=== PATIENT | female | born 1960 | race Caucasian/White ===

== ENCOUNTER → 2016-06-05 | Outpatient (CLI) | payer MEDICARE, OTHER ==
[2016-06-05 10:46] LABS: ABSOLUTE EOSINOPHILS # (AUTO) 0.1 10^3/uL (0.0-0.6); ABSOLUTE LYMPHOCYTES (AUTO) 1.1 10^3/uL (0.5-4.7); ABSOLUTE MONOCYTES (AUTO) 0.4 10^3/uL (0.1-1.4); ABSOLUTE NEUT (AUTO) 5.6 10^3/uL (1.7-8.2); BASOPHILS % (AUTO) 0.5 % (0-2); EOSINOPHILS % (AUTO) 1.7 % (0-6); HEMATOCRIT 39.5 % (36.0-47.0); HEMOGLOBIN 13.4 g/dL (12.0-15.5); HGB HCT DIFFERENCE 0.7; LYMPHOCYTES % (AUTO) 14.7 % (13-45); MEAN CORPUSCULAR HEMOGLOBIN 29.5 pg (27.0-33.4); MEAN CORPUSCULAR HGB CONC 33.8 g/dL (32.0-36.0); MEAN CORPUSCULAR VOLUME 87 fl (80-97); MONOCYTES % (AUTO) 5.3 % (3-13); RED BLOOD COUNT 4.53 10^6/uL (3.72-5.28); RED CELL DISTRIBUTION WIDTH 13.1 % (11.5-14.0); SEGMENTED NEUTROPHILS % (AUTO) 77.8 % (42-78); WHITE BLOOD COUNT 7.2 10^3/uL (4.0-10.5)
[2016-06-05 11:05] LABS: ALBUMIN 4.3 g/dL (3.5-5.0); BILIRUBIN,TOTAL 0.6 mg/dL (0.2-1.3); CHOLESTEROL 207.18 mg/dL (0-200)
[2016-06-05 11:12] LABS: ANION GAP 13 (5-19); BLOOD UREA NITROGEN 10 mg/dL (7-20); CALCIUM 10.1 mg/dL (8.4-10.2); CARBON DIOXIDE 28 mmol/L (22-30); CHLORIDE 106 mmol/L (98-107); CREATININE RESULT 0.82 mg/dL (0.52-1.25); GLUCOSE 99 mg/dL (75-110); MAGNESIUM 1.6 mg/dL (1.6-2.3); SODIUM 147.3 mmol/L (137-145)
== END ==
LOC: OD 09:19
PROVIDERS: ATTEND Internal Medicine Nephrology
DX: Z94.0 Kidney transplant status (principal); Z79.899 Other long term (current) drug therapy; E55.9 Vitamin D deficiency, unspecified; Z11.4 Encounter for screening for human immunodeficiency virus [HIV]; E11.29 Type 2 diabetes mellitus with other diabetic kidney complication; N39.0 Urinary tract infection, site not specified
CPT/HCPCS: 36415; 80048; 80197; 82040; 82247; 82465; 82977; 83718; 83721; 83735; 84075; 84100; 84450; 84460; 84478; 85025

== ENCOUNTER → 2016-08-05 | Outpatient (CLI) | payer MEDICARE, OTHER ==
[2016-08-05 10:09] LABS: ABSOLUTE EOSINOPHILS # (AUTO) 0.2 10^3/uL (0.0-0.6); ABSOLUTE LYMPHOCYTES (AUTO) 1.2 10^3/uL (0.5-4.7); ABSOLUTE MONOCYTES (AUTO) 0.2 10^3/uL (0.1-1.4); ABSOLUTE NEUT (AUTO) 2.6 10^3/uL (1.7-8.2); BASOPHILS % (AUTO) 0.4 % (0-2); EOSINOPHILS % (AUTO) 4.8 % (0-6); HEMATOCRIT 32.3 % (36.0-47.0); HEMOGLOBIN 10.6 g/dL (12.0-15.5); HGB HCT DIFFERENCE -0.5; LYMPHOCYTES % (AUTO) 27.9 % (13-45); MEAN CORPUSCULAR HEMOGLOBIN 27.6 pg (27.0-33.4); MEAN CORPUSCULAR HGB CONC 32.9 g/dL (32.0-36.0); MEAN CORPUSCULAR VOLUME 84 fl (80-97); MONOCYTES % (AUTO) 5.8 % (3-13); RED BLOOD COUNT 3.85 10^6/uL (3.72-5.28); RED CELL DISTRIBUTION WIDTH 14.6 % (11.5-14.0); SEGMENTED NEUTROPHILS % (AUTO) 61.1 % (42-78); WHITE BLOOD COUNT 4.2 10^3/uL (4.0-10.5)
[2016-08-05 10:26] LABS: ALANINE AMINOTRANSFERASE 24 U/L (9-52); ALBUMIN 3.8 g/dL (3.5-5.0); ALKALINE PHOSPHATASE 57 U/L (38-126); ANION GAP 11 (5-19); ASPARTATE AMINO TRANSFERASE 22 U/L (14-36); BILIRUBIN,TOTAL 0.6 mg/dL (0.2-1.3); BLOOD UREA NITROGEN 12 mg/dL (7-20); CALCIUM 9.8 mg/dL (8.4-10.2); CARBON DIOXIDE 27 mmol/L (22-30); CHLORIDE 103 mmol/L (98-107); CHOLESTEROL 169.47 mg/dL (0-200); CREATININE RESULT 1.18 mg/dL (0.52-1.25); Direct HDL 29 mg/dL (>40); GLUCOSE 96 mg/dL (75-110); MAGNESIUM 1.6 mg/dL (1.6-2.3); PHOSPHORUS 4.2 mg/dL (2.5-4.5); POTASSIUM 4.6 mmol/L (3.6-5.0); SODIUM 140.6 mmol/L (137-145); TRIGLYCERIDES 287 mg/dL (<150)
[2016-08-05 10:38] LABS: DIRECT LDL 81 mg/dL (<100)
== END ==
LOC: OD 08:57
PROVIDERS: ATTEND Internal Medicine Nephrology
DX: D68.9 Coagulation defect, unspecified (principal); Z94.0 Kidney transplant status; Z79.899 Other long term (current) drug therapy; E55.9 Vitamin D deficiency, unspecified; Z11.4 Encounter for screening for human immunodeficiency virus [HIV]; E11.29 Type 2 diabetes mellitus with other diabetic kidney complication; Z78.9 Other specified health status; N39.0 Urinary tract infection, site not specified; D63.1 Anemia in chronic kidney disease; E83.30 Disorder of phosphorus metabolism, unspecified; Z09 Encounter for follow-up examination after completed treatment for conditions other than malignant neoplasm; T86.10 Unspecified complication of kidney transplant; B25.9 Cytomegaloviral disease, unspecified; Z94.83 Pancreas transplant status
CPT/HCPCS: 36415; 80048; 80197; 82040; 82247; 82465; 82977; 83718; 83721; 83735; 84075; 84100; 84450; 84460; 84478; 85025

== ENCOUNTER → 2016-08-14 | Outpatient (CLI) | payer MEDICARE, OTHER ==
[2016-08-14 09:34] LABS: ABSOLUTE EOSINOPHILS # (AUTO) 0.2 10^3/uL (0.0-0.6); ABSOLUTE LYMPHOCYTES (AUTO) 1.3 10^3/uL (0.5-4.7); ABSOLUTE MONOCYTES (AUTO) 0.3 10^3/uL (0.1-1.4); BASOPHILS % (AUTO) 0.4 % (0-2); EOSINOPHILS % (AUTO) 4.8 % (0-6); HEMATOCRIT 35.9 % (36.0-47.0); HEMOGLOBIN 11.6 g/dL (12.0-15.5); HGB HCT DIFFERENCE -1.1; LYMPHOCYTES % (AUTO) 26.6 % (13-45); MEAN CORPUSCULAR HEMOGLOBIN 27.6 pg (27.0-33.4); MEAN CORPUSCULAR HGB CONC 32.3 g/dL (32.0-36.0); MEAN CORPUSCULAR VOLUME 86 fl (80-97); MONOCYTES % (AUTO) 6.2 % (3-13); RED BLOOD COUNT 4.19 10^6/uL (3.72-5.28); RED CELL DISTRIBUTION WIDTH 14.7 % (11.5-14.0); WHITE BLOOD COUNT 4.8 10^3/uL (4.0-10.5)
[2016-08-14 09:59] LABS: ANION GAP 12 (5-19); BLOOD UREA NITROGEN 15 mg/dL (7-20); CARBON DIOXIDE 28 mmol/L (22-30); CHLORIDE 102 mmol/L (98-107); CREATININE RESULT 1.13 mg/dL (0.52-1.25); GLUCOSE 94 mg/dL (75-110); MAGNESIUM 1.8 mg/dL (1.6-2.3); PHOSPHORUS 4.6 mg/dL (2.5-4.5); POTASSIUM 4.3 mmol/L (3.6-5.0); SODIUM 142.2 mmol/L (137-145)
== END ==
LOC: OD 07:34
PROVIDERS: ATTEND Internal Medicine Nephrology
DX: Z94.0 Kidney transplant status (principal); D89.9 Disorder involving the immune mechanism, unspecified; Z79.899 Other long term (current) drug therapy; E55.9 Vitamin D deficiency, unspecified; Z11.4 Encounter for screening for human immunodeficiency virus [HIV]; E11.29 Type 2 diabetes mellitus with other diabetic kidney complication; Z78.9 Other specified health status; N39.0 Urinary tract infection, site not specified; D63.1 Anemia in chronic kidney disease; E83.30 Disorder of phosphorus metabolism, unspecified; Z09 Encounter for follow-up examination after completed treatment for conditions other than malignant neoplasm; T86.10 Unspecified complication of kidney transplant; B26.9 Mumps without complication; Z94.83 Pancreas transplant status
CPT/HCPCS: 36415; 80048; 80197; 83735; 84100; 85025

== ENCOUNTER → 2016-08-21 | Outpatient (CLI) | payer MEDICARE, OTHER ==
[2016-08-21 08:59] LABS: ABSOLUTE EOSINOPHILS # (AUTO) 0.2 10^3/uL (0.0-0.6); ABSOLUTE LYMPHOCYTES (AUTO) 1.1 10^3/uL (0.5-4.7); ABSOLUTE MONOCYTES (AUTO) 0.5 10^3/uL (0.1-1.4); BASOPHILS % (AUTO) 0.3 % (0-2); EOSINOPHILS % (AUTO) 1.7 % (0-6); HEMATOCRIT 38.1 % (36.0-47.0); HEMOGLOBIN 12.2 g/dL (12.0-15.5); HGB HCT DIFFERENCE -1.5; LYMPHOCYTES % (AUTO) 12.7 % (13-45); MEAN CORPUSCULAR HEMOGLOBIN 27.2 pg (27.0-33.4); MEAN CORPUSCULAR HGB CONC 32.1 g/dL (32.0-36.0); MEAN CORPUSCULAR VOLUME 85 fl (80-97); MONOCYTES % (AUTO) 5.9 % (3-13); RED BLOOD COUNT 4.49 10^6/uL (3.72-5.28); RED CELL DISTRIBUTION WIDTH 15.1 % (11.5-14.0); SEGMENTED NEUTROPHILS % (AUTO) 79.4 % (42-78); WHITE BLOOD COUNT 8.8 10^3/uL (4.0-10.5)
[2016-08-21 09:29] LABS: ANION GAP 15 (5-19); BLOOD UREA NITROGEN 14 mg/dL (7-20); CALCIUM 10.4 mg/dL (8.4-10.2); CARBON DIOXIDE 24 mmol/L (22-30); CHLORIDE 105 mmol/L (98-107); CREATININE RESULT 1.11 mg/dL (0.52-1.25); GLUCOSE 96 mg/dL (75-110); MAGNESIUM 1.4 mg/dL (1.6-2.3); PHOSPHORUS 4.5 mg/dL (2.5-4.5); POTASSIUM 4.6 mmol/L (3.6-5.0); SODIUM 143.9 mmol/L (137-145)
[2016-08-25 08:03] LABS: DEAMIDATED GLIADIN IGA AB 1 units (0-19); DEAMIDATED GLIADIN IGG AB 2 units (0-19); IMMUNOGLOBULIN A 2 65 mg/dL (87-352); T-TRANSGLUTAMINASE (TTG) IGG <2 U/mL (0-5)
== END ==
LOC: OD 08:08
PROVIDERS: ATTEND Internal Medicine Nephrology
DX: D89.9 Disorder involving the immune mechanism, unspecified (principal); Z94.0 Kidney transplant status; Z79.899 Other long term (current) drug therapy; E55.9 Vitamin D deficiency, unspecified; Z11.4 Encounter for screening for human immunodeficiency virus [HIV]; E11.29 Type 2 diabetes mellitus with other diabetic kidney complication; Z78.9 Other specified health status; N39.0 Urinary tract infection, site not specified; T86.10 Unspecified complication of kidney transplant; B25.9 Cytomegaloviral disease, unspecified; Z94.83 Pancreas transplant status
CPT/HCPCS: 36415; 80048; 80197; 82533; 83520; 83735; 84100; 84443; 85025

== ENCOUNTER 2016-08-26 16:06 | Inpatient (IN) | payer MEDICARE, OTHER ==
[~2016-08-26 16:06] MED LIST: LIDOCAINE 2% INJ-PF (20 MG/ML) 10 ML AMPUL ONE
[2016-08-26] MEDS ORDERED: DEXTROSE 5%-1/2 NORMAL SALINE 1,000 ML IV PRN (17:00)
[2016-08-26 17:16] LABS: APPEARANCE,URINE SLIGHTLY-CLOUDY; BILIRUBIN,URINE NEGATIVE (NEGATIVE); GLUCOSE, URINE NEGATIVE (NEGATIVE); KETONES,URINE NEGATIVE (NEGATIVE); LEUKOCYTE ESTERASE,URINE TRACE (NEGATIVE); NITRITE,URINE NEGATIVE (NEGATIVE); PROTEIN,URINE NEGATIVE (NEGATIVE); URINE SPECIFIC GRAVITY 1.015; UROBILINOGEN,URINE NEGATIVE mg/dL (<2.0)
[2016-08-26 17:34] LABS: ABSOLUTE BASOPHILS # (AUTO) 0.1 10^3/uL (0.0-0.2); ABSOLUTE EOSINOPHILS # (AUTO) 0.2 10^3/uL (0.0-0.6); ABSOLUTE LYMPHOCYTES (AUTO) 1.3 10^3/uL (0.5-4.7); ABSOLUTE MONOCYTES (AUTO) 0.5 10^3/uL (0.1-1.4); ABSOLUTE NEUT (AUTO) 7.6 10^3/uL (1.7-8.2); BASOPHILS % (AUTO) 0.6 % (0-2); HEMATOCRIT 36.1 % (36.0-47.0); HEMOGLOBIN 11.6 g/dL (12.0-15.5); HGB HCT DIFFERENCE -1.3; LYMPHOCYTES % (AUTO) 13.2 % (13-45); MEAN CORPUSCULAR HEMOGLOBIN 27.3 pg (27.0-33.4); MEAN CORPUSCULAR VOLUME 85 fl (80-97); MONOCYTES % (AUTO) 5.1 % (3-13); RED BLOOD COUNT 4.22 10^6/uL (3.72-5.28); SEGMENTED NEUTROPHILS % (AUTO) 79.1 % (42-78); WHITE BLOOD COUNT 9.6 10^3/uL (4.0-10.5)
[2016-08-26] MEDS ORDERED: FENTANYL CITRATE INJ/PF 100 MCG/2 ML AMPUL ONE ×2 (17:49→20:04)
[2016-08-26] MEDS ORDERED: MIDAZOLAM 2 MG/2 ML INJ ONE ×2 (17:49→18:43)
[2016-08-26] MEDS ORDERED: PROPOFOL INJ 200 MG/20 ML VIAL IV ONE ×2 (17:50→18:43)
[2016-08-26] MEDS ORDERED: LIDOCAINE 0.5% INJ-PF (5 MG/ML) 50 ML SDV ONE (17:51)
[2016-08-26 18:02] LABS: ALANINE AMINOTRANSFERASE 18 U/L (9-52); ALBUMIN 4.3 g/dL (3.5-5.0); ALKALINE PHOSPHATASE 63 U/L (38-126); ANION GAP 14 (5-19); ASPARTATE AMINO TRANSFERASE 19 U/L (14-36); BILIRUBIN,DIRECT 0.4 mg/dL (0.0-0.4); BILIRUBIN,TOTAL 0.4 mg/dL (0.2-1.3); BLOOD UREA NITROGEN 17 mg/dL (7-20); CALCIUM 9.8 mg/dL (8.4-10.2); CARBON DIOXIDE 24 mmol/L (22-30); CHLORIDE 102 mmol/L (98-107); CREATININE RESULT 1.13 mg/dL (0.52-1.25); GLUCOSE 85 mg/dL (75-110); POTASSIUM 4.2 mmol/L (3.6-5.0); SODIUM 140.4 mmol/L (137-145); TOTAL PROTEIN 7.6 g/dL (6.3-8.2)
[2016-08-26] MEDS ORDERED: LIDOCAINE 1% INJ-PF (10 MG/ML) 30 ML SDV ONE (18:29)
[2016-08-26] MEDS ORDERED: VANCOMYCIN HCL INJ 500 MG VIAL ONE (18:30)
--- NOTE | 2016-08-26 18:34 | HISTORY AND PHYSICAL E ---
History and Physical NAME: QAMAR TAPIA : 1960 AGE: 56Y ADMITTED: 08/26/2016 ROOM: 209 CHIEF COMPLAINT: Pain along the right breast, the left pubic area, and the right axilla. HISTORY OF PRESENT ILLNESS: This is a 56-year-old female who has a history of kidney transplant in 2011 and has been on anti-rejection medications. About 2 weeks ago, she noted a boil in the right breast, as well as another one in the left pubic area. This has been gradually worsening and also noted the off and on fever in the past 1-1/2 weeks. Also has been complaining of pains along the right axilla. She was seen by her primary physician yesterday and put on p.o. antibiotics and [facility] and subsequently sent to the hospital as a direct admission for possible incision and drainage of multiple abscesses. PAST MEDICAL HISTORY: 1. History of degenerative joint disease, as well as spinal stenosis of the cervical spine. 2. Kidney transplant in 2011. 3. Four abdominal hernias that were repaired in [place], but there is some complication with inadvertant injury to the bowel, but this has been fixed, according to the patient. 4. Patient denies hypertension or diabetes. ALLERGIES: SHE HAS MULTIPLE ALLERGIES TO: 1. OXYCONTIN. 2. PERCOCET. 3. CRESTOR. 4. VICODIN. 5. SULFA. 6. DARVOCET. FAMILY HISTORY: Noncontributory. SOCIAL HISTORY: Denies smoking, nor drinking, nor drug use. PHYSICAL EXAMINATION: GENERAL: Well-developed, well-nourished, 56-year-old female, alert and oriented. Complaining of pain along the right breast and the left pubic area and the right axilla. VITAL SIGNS: Blood pressure 124/100, pulse rate of 86, temperature of 99.9 degrees Fahrenheit, and 99% pulse oximetry on room air. NECK: Supple. No thyromegaly. LUNGS: Clear. HEART: Regular sinus rhythm. SKIN: The axilla has at least 3 areas of small abscesses and the biggest at the mid part, about 1.5 cm in diameter. The right breast, however, has a large abscess with fluctuation. ABDOMEN: Soft with obvious left pubic abscess, about 3 cm in diameter. EXTREMITIES: No edema. IMPRESSION: 1. Multiple abscesses of the right breast, the right axilla, and the left pubic area. 2. History of kidney transplant. 3. Mild renal failure, which she claims is due to IV contrast in her CAT scans at about 2 months ago. 4. She is also waiting to be further evaluated at the [facility] for her progress of the kidney transplant. PLAN: Patient for I and D of these abscesses and start on IV antibiotics. DICTATING PHYSICIAN: ZAIN OCONNOR M.D. [id number] PHY#: [id number] ID: [id number] JOB#: [id number] ACCT: [id number] cc: >
[2016-08-26] MEDS ORDERED: KETAMINE HCL INJ 500 MG/10 ML VIAL ONE (18:42)
[2016-08-26] MEDS ORDERED: VANCOMYCIN HCL 1,000 MG in DEXTROSE 5%-WATER 250 ML IV ONE (19:00)
[2016-08-26] MEDS ORDERED: MORPHINE SULFATE 10 MG/ML INJ IV PRN (19:18)
[2016-08-26] MEDS ORDERED: FENTANYL CITRATE INJ/PF 100 MCG/2 ML AMPUL IV PRN ×3 (19:18)
[2016-08-26] MEDS ORDERED: DIPHENHYDRAMINE HCL 50 MG/ML VIAL IV PRN (19:18)
[2016-08-26] MEDS ORDERED: ONDANSETRON HCL INJ/PF 4 MG/2 ML SDV IV PRN ×2 (19:18→20:37)
--- NOTE | 2016-08-26 20:09 | OPERATIVE REPORT E ---
Operative Report NAME: QAMAR TAPIA : 1960 AGE: 56Y DATE OF SURGERY: 08/26/2016 ROOM: 209 PREOPERATIVE DIAGNOSIS: Multiple abscesses of the right breast, the right axilla and the left pubic area. POSTOPERATIVE DIAGNOSIS: Multiple abscesses of the right breast, the right axilla and the left pubic area. OPERATION: Incision and drainage of abscess of the left pubic area, the right breast, 3 right axillary abscesses. SURGEON: ZAIN OCONNOR M.D. ANESTHESIA: Local MAC. INDICATION: This is a 56-year-old female who has been on antirejection therapy for kidney transplant noted to have abscesses in the right breast, the right axilla and the left pubic area for the past 2 weeks. [facility] and referred for admission to the hospital for incision and drainage of multiple abscesses. DESCRIPTION OF PROCEDURE: After adequate IV sedation, the patient was placed in a supine position with the right arm extended and the right axilla, the right breast and the left pubic areas were then prepped and draped in the usual sterile fashion. Appropriate timeout was performed. Next local anesthesia infiltrated in the left pubic area and incision made. A gush of pus was noted and cultures were obtained. The pocket was then probed with hemostat and extended laterally and medially to a distance of about 5 cm. The area was also finger dissected and there is one area where it goes further deep down close to the fascia. The area subsequently pulse lavaged and subsequently packed with 1/2-inch Iodoform gauze. Next, the right breast was then injected with 1% Xylocaine and an incision through an old reduction mammoplasty scar was made right on top of the abscess. This area has a bigger sized abscess and a lot of purulent material extruded out. Cultures were also obtained. The incision was extended laterally and medially right on the scar roughly measuring about 8 cm long. Further finger dissection was performed and there appears to be a couple of cavitations that were also broken up. The area was then pulse lavaged with a liter of saline. The area was subsequently packed with 1/2-inch Iodoform gauze. Attention was then turned to the area of the 3 small abscesses in the right axilla. Local anesthesia infiltrated on top of the abscesses and incisions were made with top part joined together, making about a 1 cm to 2 cm incision and some purulent material also excised and removed. Next, a smaller abscess on the medial axillary area was anesthetized and incision made. Also some purulent material was extruded and also bluntly dissected with a hemostat. Iodoform gauze 1/4 inch were placed on these 3 incisions and drainage sites. Sterile dressings were placed over all the incisions. Needle, instruments and sponge counts were all correct and estimated blood loss about 30 mL. The patient tolerated the procedure well and brought to recovery room in satisfactory condition. DICTATING PHYSICIAN: ZAIN OCONNOR M.D. [id number] PHY#: [id number] ID: [id number] JOB#: [id number] ACCT: [id number] cc:ZAIN OCONNOR M.D. >
[2016-08-26] MEDS ORDERED: FENTANYL CITRATE INJ/PF 100 MCG/2 ML AMPUL INJ ONE (20:25)
[2016-08-26] MEDS ORDERED: IBUPROFEN INJ 800 MG/8 ML VIAL IV ONE (20:31)
[2016-08-26] MEDS ORDERED: HYDROMORPHONE HCL INJ/PF 2 MG/ML AMPULE IV PRN (20:31)
[2016-08-26] MEDS ORDERED: NORMAL SALINE 1000 ML 1,000 ML IV PRN (20:37)
[2016-08-26] MEDS ORDERED: ACETAMINOPHEN 325 MG TABLET PO PRN (21:30)
[2016-08-27] MEDS: HYDROMORPHONE HCL INJ/PF 2 MG/ML AMPULE IV PRN ×2 (02:12→05:47)
[2016-08-27] MEDS ORDERED: VANCOMYCIN HCL 750 MG in DEXTROSE 5%-WATER 250 ML IV SCH (06:00)
[2016-08-27] MEDS ORDERED: VANCOMYCIN HCL 1,000 MG in DEXTROSE 5%-WATER 250 ML IV SCH (06:00)
[2016-08-27] MEDS ORDERED: HYDROMORPHONE HCL INJ/PF 2 MG/ML AMPULE IV PRN (08:44)
--- NOTE | 2016-08-27 12:04 | DISCHARGE SUMMARY E ---
Discharge Summary NAME: QAMAR TAPIA : 1960 AGE: 56Y ADMITTED: 08/26/2016 DISCHARGED: 08/27/2016 FINAL DIAGNOSIS: Abscesses of the right breast, the left pubis, and the right axilla. PROCEDURE DONE: Incision and drainage of abscesses of the right breast, the left pubis, and the right axilla. SUMMARY: This is a 56-year-old female who had a history of kidney transplant, on anti-rejection medications, noted the gradually enlarging inflammation of the right breast and left pubis and the right axilla for the past 2 weeks. She was sent from the surgical clinic for incision and drainage of the abscesses. She underwent incision and drainage of above abscesses and they were pulsed lavaged and packed with Iodoform gauze. Patient has chronic back pain on pain management and needed continued pain medications, not from the incision but primarily because of her back. She still has oxycodone medications at home and she will continue taking that and follow up with her pain management doctor, Dr. Dubois. She will also be seen in the surgical clinic tomorrow for removal of the packing. Prescription for Augmentin 500 mg p.o. t.i.d. for 1 week was given to the patient. Patient is feeling better. Afebrile. Tolerating her diet well. DICTATING PHYSICIAN: ZAIN OCONNOR M.D. [id number] PHY#: [id number] ID: [id number] JOB#: [id number] ACCT: [id number] cc:ZAIN OCONNOR M.D. >
[2016-08-27 12:41] VITALS: BP 116/70
== END 2016-08-27 12:40 | disposition home or self-care (01) | DRG 584 ==
LOC: 2N 16:06
PROVIDERS: ATTEND Surgery
PROC: 0X940ZX Drainage of Right Axilla, Open Approach, Diagnostic (ICD-10-PCS; 2016-08-26)
PROC: 0J9C0ZX Drainage of Pelvic Region Subcutaneous Tissue and Fascia, Open Approach, Diagnostic (ICD-10-PCS; 2016-08-26)
PROC: 0H9T0ZX Drainage of Right Breast, Open Approach, Diagnostic (ICD-10-PCS; principal; 2016-08-26 18:30)
DX: N61.1 Abscess of the breast and nipple (principal); L02.413 Cutaneous abscess of right upper limb; L02.219 Cutaneous abscess of trunk, unspecified; L02.411 Cutaneous abscess of right axilla; Z94.0 Kidney transplant status; M54.9 Dorsalgia, unspecified; G89.29 Other chronic pain; F17.210 Nicotine dependence, cigarettes, uncomplicated; F41.9 Anxiety disorder, unspecified; M48.02 Spinal stenosis, cervical region; N19 Unspecified kidney failure; Z88.6 Allergy status to analgesic agent; Z88.2 Allergy status to sulfonamides; Z88.1 Allergy status to other antibiotic agents; Z88.5 Allergy status to narcotic agent; Z79.899 Other long term (current) drug therapy
CPT/HCPCS: 36415; 400; 80048; 80076; 81001; 85025; 87070; 87075; 87077; 87186; 87205; A6266; J1170; J1741; J2250; J2704; J3010; J3370; J3490; J7030; J7060

== ENCOUNTER → 2017-05-31 | Outpatient (CLI) | payer MEDICARE, OTHER ==
[2017-05-31 10:24] LABS: ABSOLUTE EOSINOPHILS # (AUTO) 0.1 10^3/uL (0.0-0.6); ABSOLUTE LYMPHOCYTES (AUTO) 1.5 10^3/uL (0.5-4.7); ABSOLUTE MONOCYTES (AUTO) 0.3 10^3/uL (0.1-1.4); ABSOLUTE NEUT (AUTO) 4.6 10^3/uL (1.7-8.2); BASOPHILS % (AUTO) 0.3 % (0-2); EOSINOPHILS % (AUTO) 1.9 % (0-6); HEMATOCRIT 38.3 % (36.0-47.0); HEMOGLOBIN 12.8 g/dL (12.0-15.5); LYMPHOCYTES % (AUTO) 23.4 % (13-45); MEAN CORPUSCULAR HEMOGLOBIN 29.5 pg (27.0-33.4); MEAN CORPUSCULAR HGB CONC 33.5 g/dL (32.0-36.0); MEAN CORPUSCULAR VOLUME 88 fl (80-97); MONOCYTES % (AUTO) 4.8 % (3-13); PLATELET COUNT 168 10^3/uL (150-450); RED BLOOD COUNT 4.34 10^6/uL (3.72-5.28); RED CELL DISTRIBUTION WIDTH 13.3 % (11.5-14.0); SEGMENTED NEUTROPHILS % (AUTO) 69.6 % (42-78); TOTAL CELLS COUNTED % (AUTO) 100 %; WHITE BLOOD COUNT 6.6 10^3/uL (4.0-10.5)
[2017-05-31 10:44] LABS: ANION GAP 12 (5-19); BLOOD UREA NITROGEN 12 mg/dL (7-20); CALCIUM 10.2 mg/dL (8.4-10.2); CARBON DIOXIDE 27 mmol/L (22-30); CHLORIDE 105 mmol/L (98-107); GLUCOSE 79 mg/dL (75-110); PHOSPHORUS 3.9 mg/dL (2.5-4.5); POTASSIUM 4.3 mmol/L (3.6-5.0); SODIUM 144.2 mmol/L (137-145)
== END ==
LOC: OD 09:38
PROVIDERS: ATTEND Internal Medicine Nephrology
DX: D89.9 Disorder involving the immune mechanism, unspecified (principal); Z94.0 Kidney transplant status; Z79.899 Other long term (current) drug therapy; E55.9 Vitamin D deficiency, unspecified; Z11.4 Encounter for screening for human immunodeficiency virus [HIV]; E11.29 Type 2 diabetes mellitus with other diabetic kidney complication; Z78.9 Other specified health status; N39.0 Urinary tract infection, site not specified; D63.1 Anemia in chronic kidney disease; E83.30 Disorder of phosphorus metabolism, unspecified; B25.9 Cytomegaloviral disease, unspecified; Z09 Encounter for follow-up examination after completed treatment for conditions other than malignant neoplasm; Z94.83 Pancreas transplant status
CPT/HCPCS: 36415; 80048; 80197; 83735; 84100; 85025

== ENCOUNTER → 2017-07-15 | Outpatient (CLI) | payer MEDICARE, OTHER ==
[2017-07-15 09:55] LABS: ABSOLUTE EOSINOPHILS # (AUTO) 0.1 10^3/uL (0.0-0.6); ABSOLUTE LYMPHOCYTES (AUTO) 1.5 10^3/uL (0.5-4.7); ABSOLUTE MONOCYTES (AUTO) 0.3 10^3/uL (0.1-1.4); ABSOLUTE NEUT (AUTO) 3.4 10^3/uL (1.7-8.2); BASOPHILS % (AUTO) 0.2 % (0-2); EOSINOPHILS % (AUTO) 2.5 % (0-6); HEMATOCRIT 36.4 % (36.0-47.0); HEMOGLOBIN 12.2 g/dL (12.0-15.5); LYMPHOCYTES % (AUTO) 28.4 % (13-45); MEAN CORPUSCULAR HEMOGLOBIN 29.7 pg (27.0-33.4); MEAN CORPUSCULAR HGB CONC 33.5 g/dL (32.0-36.0); MEAN CORPUSCULAR VOLUME 89 fl (80-97); MONOCYTES % (AUTO) 6.3 % (3-13); PLATELET COUNT 170 10^3/uL (150-450); RED BLOOD COUNT 4.12 10^6/uL (3.72-5.28); RED CELL DISTRIBUTION WIDTH 13.4 % (11.5-14.0); SEGMENTED NEUTROPHILS % (AUTO) 62.6 % (42-78); TOTAL CELLS COUNTED % (AUTO) 100 %; WHITE BLOOD COUNT 5.4 10^3/uL (4.0-10.5)
[2017-07-15 10:14] LABS: ANION GAP 13 (5-19); BLOOD UREA NITROGEN 11 mg/dL (7-20); CALCIUM 10.2 mg/dL (8.4-10.2); CARBON DIOXIDE 32 mmol/L (22-30); CHLORIDE 103 mmol/L (98-107); GLUCOSE 64 mg/dL (75-110); PHOSPHORUS 4.2 mg/dL (2.5-4.5); POTASSIUM 3.6 mmol/L (3.6-5.0); SODIUM 147.6 mmol/L (137-145)
== END ==
LOC: OD 09:03
PROVIDERS: ATTEND Internal Medicine Nephrology
DX: D89.9 Disorder involving the immune mechanism, unspecified (principal); Z94.0 Kidney transplant status; Z79.899 Other long term (current) drug therapy; Z11.4 Encounter for screening for human immunodeficiency virus [HIV]; E11.29 Type 2 diabetes mellitus with other diabetic kidney complication; N39.0 Urinary tract infection, site not specified; E83.30 Disorder of phosphorus metabolism, unspecified; B25.9 Cytomegaloviral disease, unspecified; D63.1 Anemia in chronic kidney disease; Z94.83 Pancreas transplant status; Z09 Encounter for follow-up examination after completed treatment for conditions other than malignant neoplasm
CPT/HCPCS: 36415; 80048; 80197; 83735; 84100; 85025

== ENCOUNTER → 2017-11-02 | Outpatient (CLI) | payer MEDICARE, OTHER ==
[2017-11-02 09:44] LABS: ABSOLUTE EOSINOPHILS # (AUTO) 0.1 10^3/uL (0.0-0.6); ABSOLUTE LYMPHOCYTES (AUTO) 1.4 10^3/uL (0.5-4.7); ABSOLUTE MONOCYTES (AUTO) 0.4 10^3/uL (0.1-1.4); ABSOLUTE NEUT (AUTO) 5.1 10^3/uL (1.7-8.2); BASOPHILS % (AUTO) 0.3 % (0-2); HEMATOCRIT 39.5 % (36.0-47.0); HEMOGLOBIN 13.1 g/dL (12.0-15.5); LYMPHOCYTES % (AUTO) 20.2 % (13-45); MEAN CORPUSCULAR HGB CONC 33.1 g/dL (32.0-36.0); MEAN CORPUSCULAR VOLUME 85 fl (80-97); MONOCYTES % (AUTO) 5.2 % (3-13); PLATELET COUNT 177 10^3/uL (150-450); RED BLOOD COUNT 4.66 10^6/uL (3.72-5.28); RED CELL DISTRIBUTION WIDTH 14.1 % (11.5-14.0); SEGMENTED NEUTROPHILS % (AUTO) 72.3 % (42-78); TOTAL CELLS COUNTED % (AUTO) 100 %; WHITE BLOOD COUNT 7.1 10^3/uL (4.0-10.5)
[2017-11-02 10:02] LABS: ANION GAP 11 (5-19); BLOOD UREA NITROGEN 13 mg/dL (7-20); CALCIUM 10.3 mg/dL (8.4-10.2); CARBON DIOXIDE 28 mmol/L (22-30); CHLORIDE 105 mmol/L (98-107); GLUCOSE 102 mg/dL (75-110); POTASSIUM 4.6 mmol/L (3.6-5.0); SODIUM 144.3 mmol/L (137-145)
== END ==
LOC: OD 08:42
PROVIDERS: ATTEND Internal Medicine Nephrology
DX: D89.9 Disorder involving the immune mechanism, unspecified (principal); B25.9 Cytomegaloviral disease, unspecified; E55.9 Vitamin D deficiency, unspecified; E11.29 Type 2 diabetes mellitus with other diabetic kidney complication; N39.0 Urinary tract infection, site not specified; E83.30 Disorder of phosphorus metabolism, unspecified; Z94.0 Kidney transplant status; Z79.899 Other long term (current) drug therapy; Z09 Encounter for follow-up examination after completed treatment for conditions other than malignant neoplasm; Z94.83 Pancreas transplant status
CPT/HCPCS: 36415; 80048; 80197; 83735; 84100; 85025

== ENCOUNTER → 2017-12-17 | Outpatient (CLI) | payer MEDICARE, OTHER ==
[2017-12-17 09:15] LABS: ABSOLUTE EOSINOPHILS # (AUTO) 0.1 10^3/uL (0.0-0.6); ABSOLUTE LYMPHOCYTES (AUTO) 1.4 10^3/uL (0.5-4.7); ABSOLUTE MONOCYTES (AUTO) 0.3 10^3/uL (0.1-1.4); ABSOLUTE NEUT (AUTO) 5.7 10^3/uL (1.7-8.2); BASOPHILS % (AUTO) 0.2 % (0-2); EOSINOPHILS % (AUTO) 1.9 % (0-6); HEMATOCRIT 38.8 % (36.0-47.0); HEMOGLOBIN 12.9 g/dL (12.0-15.5); MEAN CORPUSCULAR HEMOGLOBIN 28.3 pg (27.0-33.4); MEAN CORPUSCULAR HGB CONC 33.1 g/dL (32.0-36.0); MEAN CORPUSCULAR VOLUME 85 fl (80-97); MONOCYTES % (AUTO) 3.9 % (3-13); PLATELET COUNT 171 10^3/uL (150-450); RED BLOOD COUNT 4.55 10^6/uL (3.72-5.28); RED CELL DISTRIBUTION WIDTH 14.8 % (11.5-14.0); TOTAL CELLS COUNTED % (AUTO) 100 %; WHITE BLOOD COUNT 7.6 10^3/uL (4.0-10.5)
[2017-12-17 09:38] LABS: ANION GAP 12 (5-19); BLOOD UREA NITROGEN 9 mg/dL (7-20); CALCIUM 9.8 mg/dL (8.4-10.2); CARBON DIOXIDE 26 mmol/L (22-30); CHLORIDE 106 mmol/L (98-107); GLUCOSE 101 mg/dL (75-110); PHOSPHORUS 3.6 mg/dL (2.5-4.5); POTASSIUM 3.9 mmol/L (3.6-5.0); SODIUM 143.5 mmol/L (137-145)
== END ==
LOC: OD 08:18
PROVIDERS: ATTEND Internal Medicine Nephrology
DX: D89.9 Disorder involving the immune mechanism, unspecified (principal); Z94.0 Kidney transplant status; Z79.899 Other long term (current) drug therapy; Z11.4 Encounter for screening for human immunodeficiency virus [HIV]; E55.9 Vitamin D deficiency, unspecified; E11.29 Type 2 diabetes mellitus with other diabetic kidney complication; Z78.9 Other specified health status; N39.0 Urinary tract infection, site not specified; D63.1 Anemia in chronic kidney disease; E83.30 Disorder of phosphorus metabolism, unspecified; Z09 Encounter for follow-up examination after completed treatment for conditions other than malignant neoplasm; T86.10 Unspecified complication of kidney transplant; B25.9 Cytomegaloviral disease, unspecified; Z94.83 Pancreas transplant status
CPT/HCPCS: 36415; 80048; 80197; 83735; 84100; 85025

== ENCOUNTER → 2018-01-17 | Outpatient (CLI) | payer MEDICARE, OTHER ==
[2018-01-17 08:52] LABS: ABSOLUTE EOSINOPHILS # (AUTO) 0.2 10^3/uL (0.0-0.6); ABSOLUTE LYMPHOCYTES (AUTO) 1.8 10^3/uL (0.5-4.7); ABSOLUTE MONOCYTES (AUTO) 0.3 10^3/uL (0.1-1.4); ABSOLUTE NEUT (AUTO) 5.7 10^3/uL (1.7-8.2); BASOPHILS % (AUTO) 0.3 % (0-2); EOSINOPHILS % (AUTO) 2.3 % (0-6); HEMATOCRIT 38.6 % (36.0-47.0); HEMOGLOBIN 13.1 g/dL (12.0-15.5); LYMPHOCYTES % (AUTO) 22.5 % (13-45); MEAN CORPUSCULAR HGB CONC 33.9 g/dL (32.0-36.0); MEAN CORPUSCULAR VOLUME 86 fl (80-97); MONOCYTES % (AUTO) 4.3 % (3-13); PLATELET COUNT 187 10^3/uL (150-450); RED BLOOD COUNT 4.51 10^6/uL (3.72-5.28); RED CELL DISTRIBUTION WIDTH 14.6 % (11.5-14.0); SEGMENTED NEUTROPHILS % (AUTO) 70.6 % (42-78); TOTAL CELLS COUNTED % (AUTO) 100 %
[2018-01-17 09:15] LABS: ANION GAP 15 (5-19); BLOOD UREA NITROGEN 11 mg/dL (7-20); CALCIUM 10.4 mg/dL (8.4-10.2); CARBON DIOXIDE 26 mmol/L (22-30); CHLORIDE 103 mmol/L (98-107); GLUCOSE 103 mg/dL (75-110); PHOSPHORUS 3.8 mg/dL (2.5-4.5); POTASSIUM 4.2 mmol/L (3.6-5.0); SODIUM 144.2 mmol/L (137-145)
== END ==
LOC: OD 08:05
PROVIDERS: ATTEND Internal Medicine Nephrology
DX: D89.9 Disorder involving the immune mechanism, unspecified (principal); B25.9 Cytomegaloviral disease, unspecified; Z94.0 Kidney transplant status; E55.9 Vitamin D deficiency, unspecified; E11.29 Type 2 diabetes mellitus with other diabetic kidney complication; N18.9 Chronic kidney disease, unspecified; D63.1 Anemia in chronic kidney disease; N39.0 Urinary tract infection, site not specified; E83.30 Disorder of phosphorus metabolism, unspecified; Z11.4 Encounter for screening for human immunodeficiency virus [HIV]; Z94.83 Pancreas transplant status
CPT/HCPCS: 36415; 80048; 80197; 83735; 84100; 85025

== ENCOUNTER → 2018-05-17 | Outpatient (CLI) | payer MEDICARE, OTHER ==
[2018-05-17 09:41] LABS: ABSOLUTE EOSINOPHILS # (AUTO) 0.1 10^3/uL (0.0-0.6); ABSOLUTE LYMPHOCYTES (AUTO) 1.6 10^3/uL (0.5-4.7); ABSOLUTE MONOCYTES (AUTO) 0.5 10^3/uL (0.1-1.4); ABSOLUTE NEUT (AUTO) 9.3 10^3/uL (1.7-8.2); BASOPHILS % (AUTO) 0.2 % (0-2); EOSINOPHILS % (AUTO) 0.9 % (0-6); HEMOGLOBIN 13.6 g/dL (12.0-15.5); MEAN CORPUSCULAR HEMOGLOBIN 29.7 pg (27.0-33.4); MEAN CORPUSCULAR HGB CONC 34.1 g/dL (32.0-36.0); MEAN CORPUSCULAR VOLUME 87 fl (80-97); PLATELET COUNT 158 10^3/uL (150-450); RED BLOOD COUNT 4.59 10^6/uL (3.72-5.28); SEGMENTED NEUTROPHILS % (AUTO) 80.9 % (42-78); TOTAL CELLS COUNTED % (AUTO) 100 %; WHITE BLOOD COUNT 11.5 10^3/uL (4.0-10.5)
[2018-05-17 10:27] LABS: ANION GAP 10 (5-19); BLOOD UREA NITROGEN 12 mg/dL (7-20); CALCIUM 10.8 mg/dL (8.4-10.2); CARBON DIOXIDE 29 mmol/L (22-30); CHLORIDE 106 mmol/L (98-107); GLUCOSE 78 mg/dL (75-110); PHOSPHORUS 3.8 mg/dL (2.5-4.5); POTASSIUM 4.8 mmol/L (3.6-5.0); SODIUM 144.9 mmol/L (137-145)
== END ==
LOC: OD 08:46
PROVIDERS: ATTEND Internal Medicine Nephrology
DX: Z94.0 Kidney transplant status (principal); D89.9 Disorder involving the immune mechanism, unspecified; E55.9 Vitamin D deficiency, unspecified; Z11.4 Encounter for screening for human immunodeficiency virus [HIV]; E11.29 Type 2 diabetes mellitus with other diabetic kidney complication; Z78.9 Other specified health status; N39.0 Urinary tract infection, site not specified; Z09 Encounter for follow-up examination after completed treatment for conditions other than malignant neoplasm; T86.10 Unspecified complication of kidney transplant; B25.9 Cytomegaloviral disease, unspecified; Z94.83 Pancreas transplant status
CPT/HCPCS: 36415; 80048; 80197; 83735; 84100; 85025

== ENCOUNTER → 2018-08-26 | Outpatient (CLI) | payer MEDICARE, OTHER ==
[2018-08-26 09:50] LABS: ABSOLUTE EOSINOPHILS # (AUTO) 0.2 10^3/uL (0.0-0.6); ABSOLUTE LYMPHOCYTES (AUTO) 1.7 10^3/uL (0.5-4.7); ABSOLUTE MONOCYTES (AUTO) 0.4 10^3/uL (0.1-1.4); ABSOLUTE NEUT (AUTO) 4.7 10^3/uL (1.7-8.2); BASOPHILS % (AUTO) 0.3 % (0-2); EOSINOPHILS % (AUTO) 2.2 % (0-6); HEMATOCRIT 39.7 % (36.0-47.0); HEMOGLOBIN 13.2 g/dL (12.0-15.5); LYMPHOCYTES % (AUTO) 24.2 % (13-45); MEAN CORPUSCULAR HEMOGLOBIN 29.5 pg (27.0-33.4); MEAN CORPUSCULAR HGB CONC 33.2 g/dL (32.0-36.0); MEAN CORPUSCULAR VOLUME 89 fl (80-97); MONOCYTES % (AUTO) 5.2 % (3-13); PLATELET COUNT 143 10^3/uL (150-450); RED BLOOD COUNT 4.47 10^6/uL (3.72-5.28); RED CELL DISTRIBUTION WIDTH 13.4 % (11.5-14.0); SEGMENTED NEUTROPHILS % (AUTO) 68.1 % (42-78); TOTAL CELLS COUNTED % (AUTO) 100 %
[2018-08-26 10:08] LABS: ANION GAP 9 (5-19); BLOOD UREA NITROGEN 14 mg/dL (7-20); CALCIUM 9.3 mg/dL (8.4-10.2); CARBON DIOXIDE 28 mmol/L (22-30); CHLORIDE 105 mmol/L (98-107); GLUCOSE 94 mg/dL (75-110); PHOSPHORUS 4.2 mg/dL (2.5-4.5); SODIUM 141.7 mmol/L (137-145)
== END ==
LOC: OD 09:10
PROVIDERS: ATTEND Internal Medicine Nephrology
DX: D89.9 Disorder involving the immune mechanism, unspecified (principal); Z94.0 Kidney transplant status; Z79.899 Other long term (current) drug therapy; E55.9 Vitamin D deficiency, unspecified; Z11.4 Encounter for screening for human immunodeficiency virus [HIV]; E11.29 Type 2 diabetes mellitus with other diabetic kidney complication; Z78.9 Other specified health status; N39.0 Urinary tract infection, site not specified; D63.1 Anemia in chronic kidney disease; E83.30 Disorder of phosphorus metabolism, unspecified; Z09 Encounter for follow-up examination after completed treatment for conditions other than malignant neoplasm; B25.9 Cytomegaloviral disease, unspecified; Z94.83 Pancreas transplant status
CPT/HCPCS: 36415; 80048; 80197; 83735; 84100; 85025

== ENCOUNTER → 2018-09-10 | Outpatient (CLI) | payer MEDICARE, OTHER ==
[2018-09-10 12:21] LABS: ABSOLUTE EOSINOPHILS # (AUTO) 0.1 10^3/uL (0.0-0.6); ABSOLUTE LYMPHOCYTES (AUTO) 1.2 10^3/uL (0.5-4.7); ABSOLUTE MONOCYTES (AUTO) 0.3 10^3/uL (0.1-1.4); ABSOLUTE NEUT (AUTO) 4.3 10^3/uL (1.7-8.2); BASOPHILS % (AUTO) 0.4 % (0-2); EOSINOPHILS % (AUTO) 2.2 % (0-6); HEMATOCRIT 40.2 % (36.0-47.0); HEMOGLOBIN 13.5 g/dL (12.0-15.5); LYMPHOCYTES % (AUTO) 19.8 % (13-45); MEAN CORPUSCULAR HEMOGLOBIN 29.5 pg (27.0-33.4); MEAN CORPUSCULAR HGB CONC 33.5 g/dL (32.0-36.0); MEAN CORPUSCULAR VOLUME 88 fl (80-97); MONOCYTES % (AUTO) 5.2 % (3-13); PLATELET COUNT 134 10^3/uL (150-450); RED BLOOD COUNT 4.57 10^6/uL (3.72-5.28); RED CELL DISTRIBUTION WIDTH 13.5 % (11.5-14.0); SEGMENTED NEUTROPHILS % (AUTO) 72.4 % (42-78); TOTAL CELLS COUNTED % (AUTO) 100 %; WHITE BLOOD COUNT 5.9 10^3/uL (4.0-10.5)
[2018-09-10 12:27] LABS: ANION GAP 10 (5-19); BLOOD UREA NITROGEN 12 mg/dL (7-20); CALCIUM 10.3 mg/dL (8.4-10.2); CARBON DIOXIDE 28 mmol/L (22-30); CHLORIDE 104 mmol/L (98-107); GLUCOSE 87 mg/dL (75-110); PHOSPHORUS 4.1 mg/dL (2.5-4.5); POTASSIUM 5.6 mmol/L (3.6-5.0); SODIUM 141.5 mmol/L (137-145)
[2018-09-12 12:10] LABS: IRON(TIBC) 47.3 ug/dL (37-170)
== END ==
LOC: OD 10:53
PROVIDERS: ATTEND Internal Medicine Nephrology
DX: Z11.4 Encounter for screening for human immunodeficiency virus [HIV] (principal); Z09 Encounter for follow-up examination after completed treatment for conditions other than malignant neoplasm; D89.9 Disorder involving the immune mechanism, unspecified; Z94.0 Kidney transplant status; Z79.899 Other long term (current) drug therapy; E55.9 Vitamin D deficiency, unspecified; Z78.9 Other specified health status; E11.29 Type 2 diabetes mellitus with other diabetic kidney complication; N39.0 Urinary tract infection, site not specified; D63.1 Anemia in chronic kidney disease; T86.10 Unspecified complication of kidney transplant; B25.9 Cytomegaloviral disease, unspecified; Z94.83 Pancreas transplant status
CPT/HCPCS: 36415; 80048; 80197; 83540; 83550; 83735; 84100; 85025

== ENCOUNTER → 2019-02-18 | Outpatient (CLI) | payer MEDICARE, OTHER ==
[2019-02-18 11:43] LABS: ABSOLUTE EOSINOPHILS # (AUTO) 0.1 10^3/uL (0.0-0.6); ABSOLUTE LYMPHOCYTES (AUTO) 1.4 10^3/uL (0.5-4.7); ABSOLUTE MONOCYTES (AUTO) 0.3 10^3/uL (0.1-1.4); ABSOLUTE NEUT (AUTO) 4.5 10^3/uL (1.7-8.2); BASOPHILS % (AUTO) 0.3 % (0-2); HEMATOCRIT 40.7 % (36.0-47.0); HEMOGLOBIN 13.7 g/dL (12.0-15.5); MEAN CORPUSCULAR HEMOGLOBIN 30.4 pg (27.0-33.4); MEAN CORPUSCULAR HGB CONC 33.6 g/dL (32.0-36.0); MEAN CORPUSCULAR VOLUME 91 fl (80-97); MONOCYTES % (AUTO) 4.4 % (3-13); PLATELET COUNT 165 10^3/uL (150-450); RED BLOOD COUNT 4.49 10^6/uL (3.72-5.28); RED CELL DISTRIBUTION WIDTH 13.7 % (11.5-14.0); SEGMENTED NEUTROPHILS % (AUTO) 71.3 % (42-78); TOTAL CELLS COUNTED % (AUTO) 100 %; WHITE BLOOD COUNT 6.3 10^3/uL (4.0-10.5)
[2019-02-18 12:19] LABS: ALBUMIN 4.5 g/dL (3.5-5.0); ALKALINE PHOSPHATASE 50 U/L (38-126); ANION GAP 10 (5-19); ASPARTATE AMINO TRANSFERASE 20 U/L (14-36); BILIRUBIN,TOTAL 0.5 mg/dL (0.2-1.3); BLOOD UREA NITROGEN 12 mg/dL (7-20); CALCIUM 10.2 mg/dL (8.4-10.2); CARBON DIOXIDE 29 mmol/L (22-30); CHLORIDE 104 mmol/L (98-107); CHOLESTEROL 229.69 mg/dL (0-200); GLUCOSE 92 mg/dL (75-110); PHOSPHORUS 3.9 mg/dL (2.5-4.5); TRIGLYCERIDES 434 mg/dL (<150)
[2019-02-18 12:30] LABS: DIRECT LDL 119 mg/dL (<100)
== END ==
LOC: OD 10:04
PROVIDERS: ATTEND Internal Medicine Nephrology
DX: D89.9 Disorder involving the immune mechanism, unspecified (principal); B25.9 Cytomegaloviral disease, unspecified; Z94.0 Kidney transplant status; Z79.899 Other long term (current) drug therapy; E55.9 Vitamin D deficiency, unspecified; Z11.4 Encounter for screening for human immunodeficiency virus [HIV]; E11.29 Type 2 diabetes mellitus with other diabetic kidney complication; N39.0 Urinary tract infection, site not specified; E83.30 Disorder of phosphorus metabolism, unspecified; Z94.83 Pancreas transplant status
CPT/HCPCS: 36415; 80048; 80197; 82040; 82247; 82465; 82977; 83718; 83721; 83735; 84075; 84100; 84450; 84460; 84478; 85025

== ENCOUNTER → 2019-03-18 | Outpatient (CLI) | payer MEDICARE, OTHER ==
[2019-03-18 11:01] LABS: ABSOLUTE EOSINOPHILS # (AUTO) 0.1 10^3/uL (0.0-0.6); ABSOLUTE LYMPHOCYTES (AUTO) 1.3 10^3/uL (0.5-4.7); ABSOLUTE MONOCYTES (AUTO) 0.3 10^3/uL (0.1-1.4); ABSOLUTE NEUT (AUTO) 5.5 10^3/uL (1.7-8.2); BASOPHILS % (AUTO) 0.2 % (0-2); EOSINOPHILS % (AUTO) 1.8 % (0-6); HEMATOCRIT 40.4 % (36.0-47.0); HEMOGLOBIN 13.8 g/dL (12.0-15.5); LYMPHOCYTES % (AUTO) 17.8 % (13-45); MEAN CORPUSCULAR HEMOGLOBIN 30.7 pg (27.0-33.4); MEAN CORPUSCULAR HGB CONC 34.1 g/dL (32.0-36.0); MEAN CORPUSCULAR VOLUME 90 fl (80-97); MONOCYTES % (AUTO) 4.2 % (3-13); PLATELET COUNT 141 10^3/uL (150-450); RED BLOOD COUNT 4.49 10^6/uL (3.72-5.28); RED CELL DISTRIBUTION WIDTH 13.7 % (11.5-14.0); TOTAL CELLS COUNTED % (AUTO) 100 %; WHITE BLOOD COUNT 7.3 10^3/uL (4.0-10.5)
[2019-03-18 11:18] LABS: ANION GAP 13 (5-19); BLOOD UREA NITROGEN 17 mg/dL (7-20); CALCIUM 10.1 mg/dL (8.4-10.2); CARBON DIOXIDE 26 mmol/L (22-30); CHLORIDE 104 mmol/L (98-107); GLUCOSE 95 mg/dL (75-110); PHOSPHORUS 3.6 mg/dL (2.5-4.5); POTASSIUM 4.3 mmol/L (3.6-5.0)
== END ==
LOC: OD 09:33
PROVIDERS: ATTEND Internal Medicine Nephrology
DX: D89.9 Disorder involving the immune mechanism, unspecified (principal); Z94.0 Kidney transplant status; E55.9 Vitamin D deficiency, unspecified; Z11.4 Encounter for screening for human immunodeficiency virus [HIV]; Z78.9 Other specified health status; N39.0 Urinary tract infection, site not specified; D63.1 Anemia in chronic kidney disease; Z94.83 Pancreas transplant status
CPT/HCPCS: 36415; 80048; 80197; 83735; 84100; 85025

== ENCOUNTER → 2019-09-04 | Outpatient (CLI) | payer MEDICARE, OTHER ==
[2019-09-04 12:39] LABS: ABSOLUTE EOSINOPHILS # (AUTO) 0.1 10^3/uL (0.0-0.6); ABSOLUTE LYMPHOCYTES (AUTO) 1.2 10^3/uL (0.5-4.7); ABSOLUTE MONOCYTES (AUTO) 0.3 10^3/uL (0.1-1.4); ABSOLUTE NEUT (AUTO) 5.7 10^3/uL (1.7-8.2); BASOPHILS % (AUTO) 0.3 % (0-2); EOSINOPHILS % (AUTO) 1.4 % (0-6); HEMATOCRIT 40.3 % (36.0-47.0); HEMOGLOBIN 13.8 g/dL (12.0-15.5); LYMPHOCYTES % (AUTO) 16.8 % (13-45); MEAN CORPUSCULAR HEMOGLOBIN 31.1 pg (27.0-33.4); MEAN CORPUSCULAR HGB CONC 34.3 g/dL (32.0-36.0); MEAN CORPUSCULAR VOLUME 91 fl (80-97); MONOCYTES % (AUTO) 4.3 % (3-13); PLATELET COUNT 175 10^3/uL (150-450); RED BLOOD COUNT 4.44 10^6/uL (3.72-5.28); RED CELL DISTRIBUTION WIDTH 13.2 % (11.5-14.0); SEGMENTED NEUTROPHILS % (AUTO) 77.2 % (42-78); TOTAL CELLS COUNTED % (AUTO) 100 %; WHITE BLOOD COUNT 7.4 10^3/uL (4.0-10.5)
[2019-09-04 12:57] LABS: ANION GAP 8 (5-19); BLOOD UREA NITROGEN 13 mg/dL (7-20); CARBON DIOXIDE 28 mmol/L (22-30); CHLORIDE 104 mmol/L (98-107); GLUCOSE 100 mg/dL (75-110); PHOSPHORUS 3.6 mg/dL (2.5-4.5); POTASSIUM 4.8 mmol/L (3.6-5.0)
== END ==
LOC: OD 11:44
PROVIDERS: ATTEND Internal Medicine Nephrology
DX: E55.9 Vitamin D deficiency, unspecified (principal); B25.9 Cytomegaloviral disease, unspecified; Z94.0 Kidney transplant status; Z79.899 Other long term (current) drug therapy; Z11.4 Encounter for screening for human immunodeficiency virus [HIV]; E11.29 Type 2 diabetes mellitus with other diabetic kidney complication; N39.0 Urinary tract infection, site not specified; N18.9 Chronic kidney disease, unspecified; D63.1 Anemia in chronic kidney disease; E83.30 Disorder of phosphorus metabolism, unspecified
CPT/HCPCS: 36415; 80048; 80197; 83735; 84100; 85025

== ENCOUNTER → 2020-01-09 | Outpatient (CLI) | payer MEDICARE, OTHER ==
--- NOTE | 2020-01-09 15:21 | WOMENS IMAGING REPORT ---
EXAM DESCRIPTION: 3D SCREENING MAMMO BILAT IMAGES COMPLETED DATE/TIME: 01/09/2020 1:19 pm REASON FOR STUDY: Z12.31 ENCNTR SCREEN MAMMOGRAM FOR MALIGNANT NEOPLASM OF BREAST Z12.31 ENCNTR SCR EEN MAMMOGRAM FOR MALIGNANT NEOPLASM OF NESS COMPARISON: Multiple since 2008 EXAM PARAMETERS: Views: Standard craniocaudal and mediolateral oblique views of each breast recorded using digital acquisition and breast tomosynthesis. Read with the assistance of CAD. .[facility] - Disbursing Officer Version 9.2 LIMITATIONS: None. FINDINGS: No suspicious masses, suspicious calcifications or architectural distortion. No areas of c oncern. IMPRESSION: NEGATIVE MAMMOGRAM. BIRADS 1. BREAST DENSITY: b. There are scattered areas of fibroglandular density. BIRAD: ASSESSMENT: 1 NEGATIVE RECOMMENDATION: ROUTINE SCREENING Please continue yearly bilateral screening mammography/tomosynthesis in December 2020 COMMENT: The patient has been notified of the results by letter per MQSA requirements. Additional no tification policies are in place for contacting patient with suspicious or incomplete findings. Quality ID #[id number]: The [employer] recommends an annual screening mammogram for women aged 40 years or over. This facility utilizes a reminder system to ensure that all patients receive reminder letters, and/or direct phone calls for appointments. This includes reminders for routine scr eening mammograms, diagnostic mammograms, or other Breast Imaging Interventions when appropriate. Th is patient will be placed in the appropriate reminder system. TECHNICAL DOCUMENTATION: FINDING NUMBER: (1) ASSESSMENT: (1) JOB ID: [id number] 2010 [employer]- All Rights Reserved Reading location - IP/workstation name: [email or web address]
== END ==
LOC: WI 13:02
PROVIDERS: ATTEND Physician Assistant
DX: Z12.31 Encounter for screening mammogram for malignant neoplasm of breast (principal); R06.02 Shortness of breath
CPT/HCPCS: 77063; 77067

== ENCOUNTER → 2020-01-16 | Outpatient (CLI) | payer MEDICARE, OTHER ==
--- NOTE | 2020-01-16 15:55 | Pulmonary Function Test ---
Pulmonary Function Test Date of Procedure:: 01/16/20 INDICATION:: Dyspnea Referring Provider: Yaneth Kuhn PA-C - Report Spirometry: Spirometry: pre-FVC: 2.43 L 80% post-FVC: 2.66 L 88% pre-FEV:1 1.96 L 83% post-FEV1: 2.10 L 89% pre-FEV1/FVC %: 80 post-FEV1/FVC%: 79 predicted: 79 [id number]%: 2.02 L 88% [id number]%: 2.00 L 67% Lung Volume: Total lung capacity: 4.38 L 96% Vital capacity: 2.59 L 86% Inspiratory capacity: 2.59 L FRC N2: 1.78 L 76% ERV: RV: 1.78 L 113% RV/TLC %:: 41 predicted 37 Diffusion Capactity: DLCO: 11.6 56% DLCO/VA: 2.76 58% Impression: No obstructive ventilatory defect. No restrictive ventilatory defect. No hyperinflation or air trapping. Moderate decrease in diffusion capacity.
== END ==
LOC: RT 13:09
PROVIDERS: ATTEND Physician Assistant
DX: R06.02 Shortness of breath (principal); E11.22 Type 2 diabetes mellitus with diabetic chronic kidney disease; N18.9 Chronic kidney disease, unspecified; Z94.0 Kidney transplant status

== ENCOUNTER → 2020-03-12 | Outpatient (CLI) | payer MEDICARE, OTHER ==
[2020-03-12 12:20] LABS: ABSOLUTE EOSINOPHILS # (AUTO) 0.1 10^3/uL (0.0-0.6); ABSOLUTE LYMPHOCYTES (AUTO) 2.1 10^3/uL (0.5-4.7); ABSOLUTE MONOCYTES (AUTO) 0.4 10^3/uL (0.1-1.4); ABSOLUTE NEUT (AUTO) 5.3 10^3/uL (1.7-8.2); BASOPHILS % (AUTO) 0.4 % (0-2); EOSINOPHILS % (AUTO) 1.7 % (0-6); HEMATOCRIT 38.3 % (36.0-47.0); HEMOGLOBIN 13.1 g/dL (12.0-15.5); LYMPHOCYTES % (AUTO) 25.9 % (13-45); MEAN CORPUSCULAR HEMOGLOBIN 30.5 pg (27.0-33.4); MEAN CORPUSCULAR HGB CONC 34.1 g/dL (32.0-36.0); MEAN CORPUSCULAR VOLUME 89 fl (80-97); MONOCYTES % (AUTO) 5.2 % (3-13); PLATELET COUNT 178 10^3/uL (150-450); RED BLOOD COUNT 4.29 10^6/uL (3.72-5.28); RED CELL DISTRIBUTION WIDTH 12.7 % (11.5-14.0); SEGMENTED NEUTROPHILS % (AUTO) 66.8 % (42-78); TOTAL CELLS COUNTED % (AUTO) 100 %
[2020-03-12 12:35] LABS: ANION GAP 6 (5-19); BLOOD UREA NITROGEN 18 mg/dL (7-20); CALCIUM 10.2 mg/dL (8.4-10.2); CARBON DIOXIDE 31 mmol/L (22-30); CHLORIDE 105 mmol/L (98-107); GLUCOSE 112 mg/dL (75-110); PHOSPHORUS 4.5 mg/dL (2.5-4.5); POTASSIUM 4.7 mmol/L (3.6-5.0)
== END ==
LOC: OD 10:28
PROVIDERS: ATTEND Internal Medicine Nephrology
DX: D89.9 Disorder involving the immune mechanism, unspecified (principal); Z94.0 Kidney transplant status; Z79.899 Other long term (current) drug therapy; E55.9 Vitamin D deficiency, unspecified
CPT/HCPCS: 36415; 80048; 80197; 83735; 84100; 85025